=== PATIENT | male | born 1995 | race African-American/Black ===

== ENCOUNTER 2018-08-25 21:59 | Emergency (ER) | payer OTHER, SELFPAY ==
--- NOTE | 2018-08-25 23:50 | ER ---
Nurse's Notes [facility] Name: Marquise De La Garza Age: 22 yrs Sex: Male : 1995 Arrival Date: 08/25/2018 Time: 22:01 Bed 30 Private MD: Diagnosis: Contusion of left thigh Presentation: 08/25 22:10 Presenting complaint: Patient states: I think I hit my knee on and now it ed1 really bothers me. Transition of care: patient was not received from another setting of care. Onset of symptoms was August 25, 2018. Risk Assessment: Do you want to hurt yourself or someone else? Patient reports no desire to harm self or others. Initial Sepsis Screen: Does the patient meet any 2 criteria? No. Patient's initial sepsis screen is negative. Does the patient have a suspected source of infection? No. Patient's initial sepsis screen is negative. Care prior to arrival: Medication(s) given: Motrin, 200 mg. 22:10 Method Of Arrival: Ambulatory ed1 22:10 Acuity: IBETH 4 ed1 Triage Assessment: 22:11 General: Appears in no apparent distress. Behavior is calm, cooperative. Pain: ed1 Complains of pain in left knee Pain radiates to left femoral area Pain currently is 0 out of 10 on a pain scale. at worst was 5 out of 10 on a pain scale. Quality of pain is described as sharp, Pain began gradually, 2 hours ago. Historical: - Allergies: 22:11 No Known Allergies; ed1 - Home Meds: 22:11 None [Active]; ed1 - PMHx: 22:11 None; ed1 - PSHx: 22:11 None; ed1 - Immunization history:: Adult Immunizations up to date. - Social history:: Smoking status: Patient/guardian denies using tobacco. - Ebola Screening: : Patient negative for fever greater than or equal to 101.5 degrees Fahrenheit, and additional compatible Ebola Virus Disease symptoms Patient denies exposure to infectious person Patient denies travel to an Ebola-affected area in the 21 days before illness onset No symptoms or risks identified at this time. Screenin:13 Abuse screen: Denies threats or abuse. Denies injuries from another. Nutritional rv screening: No deficits noted. Tuberculosis screening: No symptoms or risk factors identified. Fall Risk None identified. Assessment: 22:13 General: Appears in no apparent distress. comfortable, Behavior is calm, cooperative. rv Pain: Complains of pain in left knee Pain radiates to left femoral area. Neuro: Level of Consciousness is awake, alert, obeys commands, Oriented to person, place, time, situation. Cardiovascular: Capillary refill < 3 seconds. Respiratory: Airway is patent. GI: No signs and/or symptoms were reported involving the gastrointestinal system. : No signs and/or symptoms were reported regarding the genitourinary system. EENT: No signs and/or symptoms were reported regarding the EENT system. Derm: Skin is intact. Musculoskeletal: No signs and/or symptoms reported regarding the musculoskeletal system. 23:16 Reassessment: Patient appears in no apparent distress at this time. awaiting lab result.rv Vital Signs: 22:11 BP 118 / 78; Pulse 63; Resp 17; Temp 98.1(O); Pulse Ox 99% on R/A; Weight 95.25 kg (R); ed1 Height 5 ft. 9 in. (175.26 cm) (R); Pain 0/10; 22:30 BP 112 / 80; Pulse 70; Resp 18; Pulse Ox 98% on R/A; rv 23:00 BP 115 / 76; Pulse 78; Resp 18 S; Pulse Ox 98% on R/A; rv 23:30 BP 117 / 67; Pulse 67; Resp 18 S; Pulse Ox 98% on R/A; rv 22:11 Body Mass Index 31.01 (95.25 kg, 175.26 cm) ed1 ED Course: 22:01 Patient arrived in ED. al2 22:08 Carl Degroot MD is Attending Physician. gs 22:11 Triage completed. ed1 22:11 Arm band placed on Patient placed in an exam room, on a stretcher, on pulse oximetry. ed1 22:14 Patient has correct armband on for positive identification. Bed in low position. Call rv light in reach. Side rails up X 1. Pulse ox on. NIBP on. 23:49 Jean Claude Duran MD is Referral Physician. 08/26 00:03 No provider procedures requiring assistance completed. Patient did not have IV access rv during this emergency room visit. Administered Medications: No medications were administered Outcome: 08/25 23:50 Discharge ordered by . han 08/26 00:03 Discharged to home ambulatory. rv Condition: good Discharge instructions given to patient, Instructed on discharge instructions, follow up and referral plans. Demonstrated understanding of instructions, follow-up care. 00:03 Patient left the ED. rv Signatures: Ayde Parnell, RN RN ed1 Carl Degroot MD MD gs Love, Humza Rivera RN RN rv
--- NOTE | 2018-08-25 23:51 | EDPHYS ---
Physician Documentation [facility] Name: Marquise De La Garza Age: 22 yrs Sex: Male : 1995 Arrival Date: 08/25/2018 Time: 22:01 Bed 30 Private MD: ED Physician Carl Degroot HPI: 08/25 23:47 This 22 yrs old Black Male presents to ER via Ambulatory with complaints of Leg Pain. gs 23:47 The patient presents with pain. The complaints affect the medial aspect of left thigh. gs Onset: The symptoms/episode began/occurred 2 day(s) ago. Modifying factors: the symptoms are aggravated by movement. Associated signs and symptoms: Pertinent negatives numbness. Severity of symptoms: At their worst the symptoms were mild, in the emergency department the symptoms are unchanged. worried may have blood clot. Historical: - Allergies: 22:11 No Known Allergies; ed1 - Home Meds: 22:11 None [Active]; ed1 - PMHx: 22:11 None; ed1 - PSHx: 22:11 None; ed1 - Immunization history:: Adult Immunizations up to date. - Social history:: Smoking status: Patient/guardian denies using tobacco. - Ebola Screening: : Patient negative for fever greater than or equal to 101.5 degrees Fahrenheit, and additional compatible Ebola Virus Disease symptoms Patient denies exposure to infectious person Patient denies travel to an Ebola-affected area in the 21 days before illness onset No symptoms or risks identified at this time. ROS: 23:47 All other systems are negative. gs Exam: 23:47 Neck: Trachea midline, no thyromegaly or masses palpated, and no cervical gs lymphadenopathy. Supple, full range of motion without nuchal rigidity, or vertebral point tenderness. No Meningismus. Chest/axilla: Normal chest wall appearance and motion. Nontender with no deformity. No lesions are appreciated. Cardiovascular: Regular rate and rhythm with a normal S1 and S2. No gallops, murmurs, or rubs. Normal PMI, no JVD. No pulse deficits. Respiratory: Lungs have equal breath sounds bilaterally, clear to auscultation and percussion. No rales, rhonchi or wheezes noted. No increased work of breathing, no retractions or nasal flaring. Abdomen/GI: Soft, non-tender, with normal bowel sounds. No distension or tympany. No guarding or rebound. No evidence of tenderness throughout. Back: No spinal tenderness. No costovertebral tenderness. Full range of motion. Skin: Warm, dry with normal turgor. Normal color with no rashes, no lesions, and no evidence of cellulitis. Neuro: Awake and alert, GCS 15, oriented to person, place, time, and situation. Cranial nerves II-XII grossly intact. Motor strength 5/5 in all extremities. Sensory grossly intact. Cerebellar exam normal. Normal gait. 23:47 Constitutional: The patient appears alert, awake. 23:47 Musculoskeletal/extremity: Extremities: noted in the medial aspect of left thigh and medial aspect of left knee: pain, tenderness, There is no evidence of swelling. Vital Signs: 22:11 BP 118 / 78; Pulse 63; Resp 17; Temp 98.1(O); Pulse Ox 99% on R/A; Weight 95.25 kg (R); ed1 Height 5 ft. 9 in. (175.26 cm) (R); Pain 0/10; 22:30 BP 112 / 80; Pulse 70; Resp 18; Pulse Ox 98% on R/A; rv 23:00 BP 115 / 76; Pulse 78; Resp 18 S; Pulse Ox 98% on R/A; rv 23:30 BP 117 / 67; Pulse 67; Resp 18 S; Pulse Ox 98% on R/A; rv 22:11 Body Mass Index 31.01 (95.25 kg, 175.26 cm) ed1 MDM: 22:30 Patient medically screened. gs 23:47 Differential diagnosis: contusion, abrasion, dvt. Data reviewed: vital signs, nurses gs notes. Counseling: I had a detailed discussion with the patient and/or guardian regarding: the historical points, exam findings, and any diagnostic results supporting the discharge/admit diagnosis, the need for outpatient follow up. 08/25 22:31 Order name: D-Dimer; Complete Time: 23:43 gs Administered Medications: No medications were administered Disposition: 08/25/18 23:50 Discharged to Home. Impression: Contusion of left thigh. - Condition is Stable. - Discharge Instructions: Contusion, [id number]. - Medication Reconciliation Form, Thank You Letter, Antibiotic Education, Prescription Opioid Use form. - Follow up: Jean Claude Duran MD; When: 2 - 3 days; Reason: Re-evaluation by your physician. Signatures: Dispatcher [employer] EDMS Ayde Parnell RN RN ed1 Carl Degroot MD MD Humza Donaldson RN RN rv Corrections: (The following items were deleted from the chart) 08/26 00:03 08/25 23:50 08/25/2018 23:50 Discharged to Home. Impression: Contusion of left thigh. rv Condition is Stable. Forms are Medication Reconciliation Form, Thank You Letter, Antibiotic Education, Prescription Opioid Use. Follow up: Jean Claude Duran; When: 2 - 3 days; Reason: Re-evaluation by your physician. gs
== END 2018-08-26 00:03 | disposition home or self-care (01) ==
LOC: ER 21:59
DX: S70.12XA Contusion of left thigh, initial encounter (principal)
CPT/HCPCS: 36415; 85379; 99283